=== PATIENT | female | born 1990 | race Caucasian/White ===

== ENCOUNTER 2017-02-02 21:24 | Emergency (ER) | payer MEDICAID ==
--- NOTE | 2017-02-02 21:36 | ED PDOC ---
Arrival/HPI - General Historian: Patient, EMS <Allen Harry - Last Filed: 02/03/17 01:37> <Rajat Dewey - Last Filed: 02/03/17 04:03> - General Time Seen by Provider: 02/02/17 21:29 - History of Present Illness Narrative History of Present Illness (Text): 02/02/17 21:30 26 y/o female, pmh including liver disease, psychiatric history of anxiety, nkda , last tetanus under 6 years ago, biba for psychiatric evaluation. Pt. got into the argument with the tonight, crying, had wound on the lt. wrist which was not sure if the patient was suicidal attempt. Pt. has no homicidal or suicidal ideation, no auditory or visual hallucination, no night sweat, no abdominal or pelvic pain, no other medical or psychological complaints. (Allen Harry) Past Medical History - Provider Review Nursing Documentation Reviewed: Yes <Allen Harry - Last Filed: 02/03/17 01:37> Family/Social History - Physician Review Nursing Documentation Reviewed: Yes Family/Social History: Unknown Family HX <Allen Harry - Last Filed: 02/03/17 01:37> Allergies/Home Meds <Allen Harry - Last Filed: 02/03/17 01:37> <Rajat Dewey - Last Filed: 02/03/17 04:03> Allergies/Adverse Reactions: Allergies No Known Allergies Allergy (Verified 02/02/17 21:36) Review of Systems - Review of Systems Constitutional: absent: Fatigue, Fevers Eyes: absent: Vision Changes ENT: absent: Hearing Changes Respiratory: absent: Cough, Sputum Cardiovascular: absent: Chest Pain Gastrointestinal: absent: Abdominal Pain, Nausea, Vomiting Neurological: absent: Headache, Dizziness, Focal Weakness, Gait Changes, Speech Changes, Facial Droop, Disequilibrium, Seizure <Allen Harry - Last Filed: 02/03/17 01:37> Physical Exam - Systems Exam Head: Present: Atraumatic, Normocephalic Pupils: Present: PERRL Extroacular Muscles: Present: EOMI Conjunctiva: Present: Normal Mouth: Present: Moist Mucous Membranes Neck: Present: Normal Range of Motion Respiratory/Chest: Present: Clear to Auscultation, Good Air Exchange. No: Respiratory Distress, Accessory Muscle Use Cardiovascular: Present: Regular Rate and Rhythm, Normal S1, S2. No: Murmurs Abdomen: Present: Normal Bowel Sounds. No: Tenderness, Distention, Peritoneal Signs Back: Present: Normal Inspection Upper Extremity: Present: Normal Inspection. No: Cyanosis, Edema Lower Extremity: Present: Normal Inspection. No: Edema Neurological: Present: GCS=15, Speech Normal, Motor Func Grossly Intact, Gait Normal, Memory Normal Skin: Present: Warm, Dry, Rashes (visible lt. forearm/wrist with superficial abrasion wound with no visible foreign bodies, no laceration . ), Normal Color Psychiatric: Present: Alert, Oriented x 3, Normal Insight, Normal Concentration , Anxious <Allen Harry - Last Filed: 02/03/17 01:37> Vital Signs Temp Pulse Resp BP Pulse Ox 02/03/17 01:45 99 H 15 121/75 100 02/02/17 22:28 99.1 F 100 H 20 146/94 H 98 02/02/17 21:25 99.1 F 120 H 20 146/94 H 98 Medical Decision Making - Lab Interpretations I have reviewed the lab results: Yes Interpretation: No clinic. lab abnormalty - RAD Interpretation Magazine Supervisor: Radiologist - EKG Interpretation Interpreted by ED Physician: Yes Type: 12 lead EKG Comparison: No previous EKG avail. <Allen Harry - Last Filed: 02/03/17 01:37> <Rajat Dewey - Last Filed: 02/03/17 04:03> ED Course and Treatment: 02/02/17 21:37 -labs/ua -ekg and chest x-ray -one on one -wound irrigate with normal saline, clean with betadine, bacitracin and gauze dressing, -will medically clear for the PES 02/02/17 23:16 -EKG: Sinus Tachycardia @ 123 BPM, no St elevation or depression, T wave inversion noted on lead III, no previous ekg for comparison. -Chest x-ray: no active disease -Labs show no acute findings except wbc 12.1 which is afebrile. -UA show no UTI -UDS show show no acute findings -Pt. is medically clear and stable for PES evaluation. -PES paged. 02/03/17 02:00 -Case discussed with the current ER attending Dr. Dewey to follow up on the patient and waiting for the PES dispo. (Allen Harry) 02/03/17 04:03 pes evaluated and for dc (Rajat Dewey) - Lab Interpretations Lab Results: 02/02/17 22:20 02/02/17 22:20 Lab Results 02/02/17 22:24: Urine Opiates Screen Negative, Urine Methadone Screen Negative, Ur Barbiturates Screen Negative, Ur Phencyclidine Scrn Negative, Ur Amphetamines Screen Negative, U Benzodiazepines Scrn Negative, U Oth Cocaine Metabols Negative, U Cannabinoids Screen Negative 02/02/17 22:20: WBC 12.1 H, RBC 5.11, Hgb 13.9, Hct 41.1, MCV 80.4, MCH 27.2, MCHC 33.8, RDW 13.4, Plt Count 295, MPV 10.7, Gran % 73.1 H, Lymph % (Auto) 19.7 L, [place] % (Auto) 6.1 H, Eos % (Auto) 1.0 L, Baso % (Auto) 0.1, Gran # 8.86 H, Lymph # 2.4, [place] # 0.7 H, Eos # 0.1, Baso # 0.01, Sodium 139, Potassium 3.6 , Chloride 103, Carbon Dioxide 25, Anion Gap 15, BUN 10, Creatinine 0.6, Est GFR ( Amer) > 60, Est GFR (Non-Af Amer) > 60, Random Glucose 147 H, Calcium 9.8, Total Bilirubin 0.5, AST 26, ALT 44, Alkaline Phosphatase 75, Total Protein 8.7 H, Albumin 4.4, Globulin 4.3, Albumin/Globulin Ratio 1.0 L, Salicylates < 1 L, Acetaminophen < 10.0 L, Alcohol, Quantitative < 10 02/02/17 22:13: Urine Color Yellow, Urine Appearance Slight-cloudy, Urine pH 6.0 , Ur Specific [place] 1.010, Urine Protein Trace H, Urine Glucose (UA) Negative , Urine Ketones Negative, Urine Blood Negative, Urine Nitrate Negative, Urine Bilirubin Negative, Urine Urobilinogen 0.2, Ur Leukocyte Esterase Negative, Urine RBC 0 - 2, Urine WBC 1 - 3, Ur Epithelial Cells 3 - 4, Urine Bacteria Small - RAD Interpretation Radiology Orders: 02/02/17 21:44 CHEST PORTABLE [RAD] Stat - EKG Interpretation EKG Interpretation (Text): 02/02/17 22:21 Sinus Tachycardia @ 123 BPM, no St elevation or depression, T wave inversion noted on lead III, no previous ekg for comparison. (Allen Harry) - PA / SKIVER HAND / Resident Statement ELKE has reviewed & agrees with the documentation as recorded. <Allen Harry - Last Filed: 02/03/17 01:37> - PA / [employer]IVER HAND / Resident Statement / has reviewed & agrees with the documentation as recorded. <Rajat Dewey - Last Filed: 02/03/17 04:03> Disposition/Present on Arrival - Present on Arrival Any Indicators Present on Arrival: No History of DVT/PE: No History of Uncontrolled Diabetes: No Urinary Catheter: No History of Decub. Ulcer: No - Disposition Have Diagnosis and Disposition been Completed?: Yes Disposition Time: 00:43 <Allen Harry - Last Filed: 02/03/17 01:37> - Present on Arrival Any Indicators Present on Arrival: No - Disposition Have Diagnosis and Disposition been Completed?: Yes Disposition Time: 04:00 <Rajat Dewey - Last Filed: 02/03/17 04:03> - Disposition Diagnosis: Forearm abrasion, non-infected, Psychiatric care Disposition: HOME/ ROUTINE Patient Problems: Current Active Problems Problem Status Diagnosed Forearm abrasion, non-infected Acute Psychiatric care Acute Condition: GOOD
[2017-02-02 21:37] VITALS: BMI 38.7
[2017-02-02 21:48] VITALS: TEMP 99.1
[2017-02-02 22:45] LABS: ADD MANUAL DIFF? NO
[2017-02-02 22:48] LABS: BASO # 0.01 K/mm3 (0.0-2.0); BASO % 0.1 % (0.0-3.0); EOS # 0.1 (0.0-0.7); GRAN # 8.86 (1.4-6.5); GRAN % 73.1 % (50.0-68.0); HEMATOCRIT 41.1 % (36.0-48.0); LYMPH # 2.4 (1.2-3.4); LYMPH % 19.7 % (22.0-35.0); MEAN CELL VOLUME 80.4 fL (80.0-105.0); MEAN CORPUSCULAR HEMOGLOBIN 27.2 pg (25.0-35.0); MEAN CORPUSCULAR HGB CONC 33.8 g/dl (31.0-37.0); MEAN PLATELET VOLUME 10.7 fl (7.0-11.0); MONO # 0.7 (0.1-0.6); MONO % 6.1 % (1.0-6.0); PLATELET COUNT 295 10^3/uL (120.0-450.0); RED CELL DISTRIBUTION WIDTH 13.4 % (11.5-14.5); WHITE BLOOD COUNT 12.1 10^3/ul (4.5-11.0)
[2017-02-02 22:57] LABS: ALKALINE PHOSPHATASE 75 U/L (38-133); ALT/SGPT 44 U/L (7-56); AST/SGOT 26 U/L (15-39); BILIRUBIN,TOTAL 0.5 mg/dL (0.2-1.3); BLOOD UREA NITROGEN 10 mg/dL (7-21); CALCIUM 9.8 mg/dL (8.4-10.5); CARBON DIOXIDE 25 mmol/L (21-33); CHLORIDE 103 mmol/L (98-107); GFR AFRICAN-AMERICAN > 60; GLUCOSE,RANDOM 147 mg/dL (70-110); POTASSIUM 3.6 mmol/L (3.6-5.0); SODIUM 139 mmol/L (132-148); TOTAL PROTEIN 8.7 g/dL (5.8-8.3)
[2017-02-03 00:20] LABS: URINE BILIRUBIN NEGATIVE (NEGATIVE); URINE BLOOD NEGATIVE (NEGATIVE); URINE GLUCOSE (UA) NEGATIVE (NEGATIVE); URINE KETONE NEGATIVE (NEGATIVE); URINE LEUKOCYTE ESTERASE NEGATIVE Leu/uL (NEGATIVE); URINE PROTEIN TRACE mg/dL (<30 mg/dL); URINE UROBILINOGEN 0.2 E.U./dL (<1 E.U./dL)
[2017-02-03 00:24] LABS: URINE APPEARANCE SLIGHT-CLOUDY (CLEAR); URINE COLOR YELLOW (YELLOW)
[2017-02-03 00:30] LABS: URINE RBC 0 - 2 /hpf (0-2)
[2017-02-03 00:31] LABS: URINE BACTERIA SMALL (NEG)
[2017-02-03 01:46] VITALS: BP 121/75; PULSE 99; RESP 15; O2SAT 100
--- NOTE | 2017-02-03 09:58 | CARD ---
APPROVED REPORT EKG Measurement Heart [id number] <Conclusion> Sinus tachycardia NSSTW changes
--- NOTE | 2017-02-03 10:32 | RAD ---
HISTORY: medical clearance COMPARISON: No prior. FINDINGS: LUNGS: No active pulmonary disease. PLEURA: No significant pleural effusion identified, no pneumothorax apparent. CARDIOVASCULAR: Normal. OSSEOUS STRUCTURES: No significant abnormalities. VISUALIZED UPPER ABDOMEN: Normal. OTHER FINDINGS: None. IMPRESSION: No active disease.
== END 2017-02-03 04:40 | disposition home or self-care (01) ==
LOC: ED 21:24
DX: S50.812A Abrasion of left forearm, initial encounter (principal); X58.XXXA Exposure to other specified factors, initial encounter; Z00.8 Encounter for other general examination